=== PATIENT | female | born 1995 | race Caucasian/White ===

== ENCOUNTER 2017-09-21 21:32 | Emergency (ER) | payer SELFPAY ==
[~2017-09-21] VITALS: Ht 170.2 cm; Wt 59.0 kg
[~2017-09-21 21:32] MED LIST: OXYC-128; SUMA5SPR; VICODIN PO
--- NOTE | 2017-09-21 21:45 | NUR ---
TO BED 1 A 22 YO FEMALE BIBSELF C/O MIGRAINE HEADACHE X 1 DAY WITH NAUSEA. PATIENT IS AAOX4, NAD NOTED. VSS. NONDIAPHORETIC. COMFORT MEASURES RENDERED.
[2017-09-21] MEDS ORDERED: KETOROLAC TROMETHAMINE INJ 30 MG/ML VIAL ONE (22:12)
[2017-09-21] MEDS ORDERED: ONDANSETRON HCL/PF 4 MG/2 ML VIAL ONE (22:12)
--- NOTE | 2017-09-21 22:25 | NUR ---
STARTED A SALINE LOCK ON THE LAC G20.
[2017-09-21] MEDS ORDERED: ONDANSETRON HCL/PF 4 MG/2 ML VIAL IVP ONE (22:30)
[2017-09-21] MEDS ORDERED: KETOROLAC TROMETHAMINE INJ 30 MG/ML VIAL IV ONE (22:30)
[2017-09-21] MEDS ORDERED: IV NS 0.9% 1,000 ML BAG IV ONE (22:30)
--- NOTE | 2017-09-21 22:30 | NUR ---
medicated patient as ordered by Ang Richardson.
--- NOTE | 2017-09-21 22:30 | NUR ---
PATIENT UNABLE TO PROVIDE URINE FOR TEST, EXPLAINED RISKS AND BENEFITS, PER PATIENT SHE IS NOT AND DOESNT FEEL THE URGE TO URINATE AT THIS TIME AND THINKS SHE IS "DEHYDRATED." KACIE BIRD NOTIFIED. WAIVER SIGNED.
--- NOTE | 2017-09-21 23:52 | NUR ---
IV removed. Catheter intact and site benign. Pressure and 4x4 applied to site. No bleeding noted. Patient discharged to home in stable condition. Written and verbal after care instructions given. Patient verbalizes understanding of instruction. Patient is ambulatory with steady gait, accompanied by . No further complaints.
[2017-09-21 23:53] VITALS: BP 110/60
== END 2017-09-21 23:53 | disposition home or self-care (01) ==
LOC: ER 21:33
DX: G43.909 Migraine, unspecified, not intractable, without status migrainosus (principal); F17.200 Nicotine dependence, unspecified, uncomplicated
CPT/HCPCS: A4606; J1885; J2405; J7030; Z7610